=== PATIENT | female | born 1975 | race Caucasian/White ===

== ENCOUNTER → 2016-07-28 | Outpatient (CLI) | payer BC ==
[~2016-07-28] MED LIST: CLONAZEPAM PO; CYMBALTA 20MG20 MG PO; CYMBALTA 30MG30 MG PO; ESKALITH C450 MG/TAB; ESKALITH C450 MG/TAB PO; EXCEDRIN 250 MG1 TAB PO; EXCEDRIN MIGRAI1 TAB PO; GEODON 20 MG20 MG PO; GEODON 40MG40 MG PO; GEODON60 MG PO; INHALER; KLONOPIN 0.5MG0.5 MG PO; KLONOPIN 1MG1 MG PO; LITHIUM 30300 MG/CAP PO; LITHIUM CA150 MG/CAP PO; MVI PO; PREMARIN 0.60.625 MG PO; PREMARIN0.625 MG PO; ULTRAM 50MG TAB50 MG PO; UNABLE; VITAMIN C250250 MG PO; VITAMIN E1000 IU PO; ZOFRAN ODT4 MG PO; [UNRECOGNIZED DRUG - REMARK]
== END ==
LOC: BHSO 09:45
DX: F31.81 Bipolar II disorder (principal)

== ENCOUNTER → 2016-09-23 | Outpatient (CLI) | payer BC | LOC: BHSO 15:11 | DX: F31.74 Bipolar disorder, in full remission, most recent episode manic (principal) ==

== ENCOUNTER 2017-11-06 06:22 | Emergency (ER) | payer BC ==
[~2017-11-06] VITALS: Ht 157.5 cm; Wt 72.7 kg
[2017-11-06 06:43] VITALS: TEMP 98.1
[2017-11-06 07:06] LABS: COLLECTION METHOD CLEAN CATCH
[2017-11-06] MEDS ORDERED: SAPHRIS10 MG SL (07:16)
[2017-11-06 07:17] LABS: PH 6 (5-8); SQUAMOUS EPITHELIAL None Seen /hpf; URINE APPEARANCE Clear; URINE BACTERIA None Seen /hpf; URINE BILIRUBIN Negative (NEGATIVE); URINE BLOOD 2+ (NEGATIVE); URINE COLOR Yellow; URINE GLUCOSE Negative (NEGATIVE); URINE KETONE Negative (NEGATIVE); URINE LEUKOCYTE ESTERASE Negative (NEGATIVE); URINE NITRATE Negative (NEGATIVE); URINE PROTEIN(semi-quant) Negative (NEGATIVE); URINE UROBILINOGEN Negative (NEGATIVE)
[2017-11-06] MEDS ORDERED: COGENTIN .0.5 MG/TAB PO (07:17)
[2017-11-06] MEDS ORDERED: SAPHRIS5 MG SL (07:17)
[2017-11-06 07:19] LABS: BASO # 0.1 (0.0-0.2); BASO % 1.1 % (0.0-2.0); EOS # 0.7 (0.0-0.7); EOS % 5.6 % (0-4.0); GRAN # 6.5 (1.4-6.5); GRAN % 52.9 % (42.2-75.2); HEMATOCRIT 44.4 % (37.0-47.0); HEMOGLOBIN 14.8 g/dl (12.5-16.0); LYMPH # 3.8 (1.2-3.4); LYMPH % 30.7 % (20.0-51.0); MEAN CELL VOLUME 90 fl (80.0-100.0); MEAN CORPUSCULAR HEMOGLOBIN 30 pg (27.0-31.0); MEAN CORPUSCULAR HGB CONC 33 g/dl (33.0-37.0); MONO # 1.2 (0.1-0.6); MONO % 9.3 % (1.7-9.3); PLATELET COUNT 363 K/mm3 (130-400); RED BLOOD COUNT 4.91 M/mm3 (4.10-5.30); REDCELL DISTRIBUTION WIDTH-CV 14.8 % (11.5-14.5)
[2017-11-06 07:26] LABS: TRICYCLIC ANTIDEPRESS URINE NEGATIVE
[2017-11-06 07:33] LABS: ALANINE AMINOTRANSFERASE 235 U/L (9-52); ALKALINE PHOSPHATASE 121 U/L (50-136); ANION GAP 12 mmol/L (7-16); AST,SGOT 117 U/L (15-37); BILIRUBIN,TOTAL 0.4 mg/dL (0.0-1.0); BLOOD UREA NITROGEN 12 mg/dL (7-17); CALCIUM 9.4 mg/dL (8.4-10.2); CARBON DIOXIDE 25 mmol/L (22-30); CHLORIDE 106 mmol/L (98-107); GLUCOSE 91 mg/dL (74-106); POTASSIUM 3.8 mmol/L (3.4-5.0); SODIUM 144 mmol/L (137-145); TOTAL PROTEIN 7.9 gm/dL (6.4-8.2)
[2017-11-06 07:35] LABS: ACETAMINOPHEN < 10 ug/mL (10-30); ALCOHOL(ethanol),MEDICAL < 10 mg/dL; SALICYLATE < 1.0 mg/dL
[2017-11-06 07:37] LABS: LITHIUM < 0.2 mmol/L (0.6-1.2)
[2017-11-06 12:30] VITALS: BP 128/89; PULSE 109
== END 2017-11-06 16:55 ==
LOC: COL.ER 06:22
PROVIDERS: Emergency Medicine
DX: F31.9 Bipolar disorder, unspecified (principal); F23 Brief psychotic disorder; R45.851 Suicidal ideations; F41.9 Anxiety disorder, unspecified; E03.9 Hypothyroidism, unspecified; F60.3 Borderline personality disorder; F17.210 Nicotine dependence, cigarettes, uncomplicated
CPT/HCPCS: A4216; J3486

== ENCOUNTER 2017-12-21 16:12 | Emergency (ER) | payer MEDICARE ==
[~2017-12-21] VITALS: Ht 177.8 cm; Wt 72.7 kg
[~2017-12-21 16:12] MED LIST changes: +COGENTIN .0.5 MG/TAB PO; +SAPHRIS10 MG SL; +SAPHRIS5 MG SL
[2017-12-21 16:22] VITALS: TEMP 97.6
[2017-12-21 17:06] LABS: BASO # 0.1 (0.0-0.2); BASO % 0.6 % (0.0-2.0); EOS # 0.6 (0.0-0.7); EOS % 3.6 % (0-4.0); GRAN # 10.9 (1.4-6.5); GRAN % 64.6 % (42.2-75.2); HEMATOCRIT 39.8 % (37.0-47.0); HEMOGLOBIN 13.2 g/dl (12.5-16.0); LYMPH # 3.7 (1.2-3.4); LYMPH % 22.1 % (20.0-51.0); MEAN CELL VOLUME 91 fl (80.0-100.0); MEAN CORPUSCULAR HEMOGLOBIN 30 pg (27.0-31.0); MEAN CORPUSCULAR HGB CONC 33 g/dl (33.0-37.0); MONO # 1.5 (0.1-0.6); MONO % 8.8 % (1.7-9.3); PLATELET COUNT 385 K/mm3 (130-400); RED BLOOD COUNT 4.36 M/mm3 (4.10-5.30); REDCELL DISTRIBUTION WIDTH-CV 14.6 % (11.5-14.5)
[2017-12-21 17:16] LABS: ALANINE AMINOTRANSFERASE 212 U/L (9-52); ALBUMIN 3.7 gm/dL (3.5-5.0); ALKALINE PHOSPHATASE 111 U/L (50-136); ANION GAP 16 mmol/L (7-16); AST,SGOT 110 U/L (15-37); BILIRUBIN,TOTAL 1.1 mg/dL (0.0-1.0); BLOOD UREA NITROGEN 11 mg/dL (7-17); CALCIUM 9.5 mg/dL (8.4-10.2); CARBON DIOXIDE 20 mmol/L (22-30); CHLORIDE 110 mmol/L (98-107); CREATININE, serum 0.88 mg/dL (0.52-1.25); GLUCOSE 98 mg/dL (74-106); POTASSIUM 3.2 mmol/L (3.4-5.0); SALICYLATE 3.9 mg/dL; SODIUM 145 mmol/L (137-145); TOTAL PROTEIN 7.3 gm/dL (6.4-8.2)
[2017-12-21 17:17] LABS: ACETAMINOPHEN < 10 ug/mL (10-30); ALCOHOL(ethanol),MEDICAL < 10 mg/dL
[2017-12-21 17:33] LABS: COLLECTION METHOD CATHETER
[2017-12-21 17:45] LABS: HYALINE CAST >12 /lpf; MUCOUS Present /lpf; PH 5 (5-8); SQUAMOUS EPITHELIAL 0-2 /hpf; URINE APPEARANCE Hazy; URINE BACTERIA Rare /hpf; URINE BILIRUBIN Positive (NEGATIVE); URINE BLOOD 1+ (NEGATIVE); URINE COLOR Amber; URINE GLUCOSE Negative (NEGATIVE); URINE KETONE 1+ (NEGATIVE); URINE LEUKOCYTE ESTERASE 2+ (NEGATIVE); URINE NITRATE Negative (NEGATIVE); URINE PROTEIN(semi-quant) 2+ (NEGATIVE); URINE UROBILINOGEN >=4.0 mg/dL (NEGATIVE)
[2017-12-21 17:47] LABS: TRICYCLIC ANTIDEPRESS URINE NEGATIVE
[2017-12-21 23:26] VITALS: BP 105/56
[2017-12-22] MEDS ORDERED: CEPHALEXIN500 M1 PO (05:27)
[2017-12-22 05:40] VITALS: PULSE 98
[2017-12-23] MEDS ORDERED: AMOXICILLIN 50500 MG PO (22:10)
== END 2017-12-22 05:40 | disposition home or self-care (01) ==
LOC: COL.ER 16:12
PROVIDERS: Emergency Medicine
DX: F15.10 Other stimulant abuse, uncomplicated (principal); F31.9 Bipolar disorder, unspecified
CPT/HCPCS: J0696; J2060; J7030

== ENCOUNTER 2017-12-22 20:32 | Emergency (ER) | payer MEDICARE ==
[~2017-12-22 20:32] MED LIST changes: +CEPHALEXIN500 M1 PO
[2017-12-22 21:31] LABS: COLLECTION METHOD CLEAN CATCH
[2017-12-22 21:38] LABS: BASO # 0.1 (0.0-0.2); BASO % 0.8 % (0.0-2.0); EOS % 8.3 % (0-4.0); GRAN # 5.8 (1.4-6.5); HEMATOCRIT 41.6 % (37.0-47.0); HEMOGLOBIN 13.9 g/dl (12.5-16.0); LYMPH # 3.9 (1.2-3.4); LYMPH % 33.1 % (20.0-51.0); MEAN CELL VOLUME 92 fl (80.0-100.0); MEAN CORPUSCULAR HEMOGLOBIN 31 pg (27.0-31.0); MEAN CORPUSCULAR HGB CONC 33 g/dl (33.0-37.0); MEAN PLATELET VOLUME 9.5 fl (7.4-10.4); MONO % 8.4 % (1.7-9.3); PLATELET COUNT 404 K/mm3 (130-400); RED BLOOD COUNT 4.53 M/mm3 (4.10-5.30); REDCELL DISTRIBUTION WIDTH-CV 14.6 % (11.5-14.5)
[2017-12-22 21:41] LABS: MUCOUS Present /lpf; PH 6 (5-8); SQUAMOUS EPITHELIAL 0-2 /hpf; URINE APPEARANCE Clear; URINE BACTERIA None Seen /hpf; URINE BILIRUBIN Negative (NEGATIVE); URINE BLOOD 2+ (NEGATIVE); URINE COLOR Yellow; URINE GLUCOSE Negative (NEGATIVE); URINE KETONE Negative (NEGATIVE); URINE LEUKOCYTE ESTERASE Negative (NEGATIVE); URINE NITRATE Negative (NEGATIVE); URINE PROTEIN(semi-quant) Negative (NEGATIVE)
[2017-12-22 21:44] LABS: ALBUMIN 3.9 gm/dL (3.5-5.0); BILIRUBIN,TOTAL 0.6 mg/dL (0.0-1.0); CALCIUM 9.6 mg/dL (8.4-10.2); CREATININE, serum 0.75 mg/dL (0.52-1.25); POTASSIUM 3.8 mmol/L (3.4-5.0); SALICYLATE 7.2 mg/dL; TOTAL PROTEIN 7.7 gm/dL (6.4-8.2)
[2017-12-22 22:03] LABS: TRICYCLIC ANTIDEPRESS URINE NEGATIVE
[2017-12-22 22:26] LABS: LITHIUM 0.4 mmol/L (0.6-1.2)
[2017-12-22 23:57] VITALS: BP 125/78; PULSE 99; TEMP 97
[2017-12-23] MEDS ORDERED: AMOXICILLIN 50500 MG PO (22:10)
== END 2017-12-22 23:58 | disposition home or self-care (01) ==
LOC: COL.ER 20:32
PROVIDERS: Emergency Medicine
DX: F31.9 Bipolar disorder, unspecified (principal); F15.10 Other stimulant abuse, uncomplicated; F29 Unspecified psychosis not due to a substance or known physiological condition; N39.0 Urinary tract infection, site not specified; F41.9 Anxiety disorder, unspecified; F12.90 Cannabis use, unspecified, uncomplicated; F17.210 Nicotine dependence, cigarettes, uncomplicated

== ENCOUNTER 2018-01-04 02:03 | Emergency (ER) | payer MEDICARE ==
[~2018-01-04] VITALS: Ht 160 cm; Wt 63.6 kg
[~2018-01-04 02:03] MED LIST changes: +AMOXICILLIN 50500 MG PO
[2018-01-04 02:04] VITALS: BP 124/73; TEMP 97.6
[2018-01-04 02:51] LABS: BASO # 0.1 (0.0-0.2); BASO % 1.4 % (0.0-2.0); EOS # 0.4 (0.0-0.7); EOS % 4.3 % (0-4.0); GRAN # 5.1 (1.4-6.5); GRAN % 55.6 % (42.2-75.2); HEMATOCRIT 39.6 % (37.0-47.0); HEMOGLOBIN 12.8 g/dl (12.5-16.0); LYMPH # 2.8 (1.2-3.4); LYMPH % 30.5 % (20.0-51.0); MEAN CELL VOLUME 92 fl (80.0-100.0); MEAN CORPUSCULAR HEMOGLOBIN 30 pg (27.0-31.0); MEAN CORPUSCULAR HGB CONC 32 g/dl (33.0-37.0); MEAN PLATELET VOLUME 10.1 fl (7.4-10.4); MONO # 0.7 (0.1-0.6); MONO % 7.7 % (1.7-9.3); PLATELET COUNT 356 K/mm3 (130-400); RED BLOOD COUNT 4.31 M/mm3 (4.10-5.30); REDCELL DISTRIBUTION WIDTH-CV 15.1 % (11.5-14.5)
[2018-01-04 02:52] LABS: COLLECTION METHOD CLEAN CATCH
[2018-01-04 03:06] LABS: MUCOUS Present /lpf; PH 5 (5-8); SQUAMOUS EPITHELIAL 0-2 /hpf; URINE APPEARANCE Clear; URINE BACTERIA None Seen /hpf; URINE BILIRUBIN Negative (NEGATIVE); URINE BLOOD 2+ (NEGATIVE); URINE COLOR Yellow; URINE GLUCOSE Negative (NEGATIVE); URINE KETONE Negative (NEGATIVE); URINE LEUKOCYTE ESTERASE Trace (NEGATIVE); URINE NITRATE Negative (NEGATIVE); URINE PROTEIN(semi-quant) Negative (NEGATIVE); URINE UROBILINOGEN Negative (NEGATIVE)
[2018-01-04 03:14] LABS: TRICYCLIC ANTIDEPRESS URINE NEGATIVE
[2018-01-04 05:49] VITALS: PULSE 97
== END 2018-01-04 08:39 | disposition home or self-care (01) ==
LOC: COL.ER 02:03
PROVIDERS: Family Medicine
DX: S00.83XA Contusion of other part of head, initial encounter (principal); F15.921 Other stimulant use, unspecified with intoxication delirium; F10.129 Alcohol abuse with intoxication, unspecified; Y90.5 Blood alcohol level of 100-119 mg/100 ml; F31.9 Bipolar disorder, unspecified; Y04.8XXA Assault by other bodily force, initial encounter
CPT/HCPCS: J7030

== ENCOUNTER → 2018-01-11 | Outpatient (CLI) | payer MEDICARE | LOC: BHSO 11:11 | DX: F31.81 Bipolar II disorder (principal) | CPT/HCPCS: G0463 ==

== ENCOUNTER 2018-02-02 18:56 | Emergency (ER) | payer MEDICARE ==
[~2018-02-02] VITALS: Ht 160 cm; Wt 65.9 kg
[2018-02-02 19:01] VITALS: BP 104/94; PULSE 101; TEMP 97
== END 2018-02-02 19:16 | disposition left against medical advice (07) ==
LOC: COL.ER 18:56
DX: S10.91XA Abrasion of unspecified part of neck, initial encounter (principal); F10.129 Alcohol abuse with intoxication, unspecified; Y04.8XXA Assault by other bodily force, initial encounter

== ENCOUNTER 2018-05-16 15:44 | Emergency (ER) | payer MEDICARE, BC ==
[~2018-05-16] VITALS: Ht 160 cm; Wt 68.2 kg
[2018-05-16 15:49] VITALS: TEMP 98.9
[2018-05-16 16:46] LABS: BASO # 0.1 (0.0-0.2); BASO % 0.9 % (0.0-2.0); EOS # 0.8 (0.0-0.7); EOS % 6.3 % (0-4.0); GRAN # 7.8 (1.4-6.5); GRAN % 58.5 % (42.2-75.2); HEMATOCRIT 39.3 % (37.0-47.0); HEMOGLOBIN 12.6 g/dl (12.5-16.0); LYMPH # 3.3 (1.2-3.4); LYMPH % 24.5 % (20.0-51.0); MEAN CELL VOLUME 92 fl (80.0-100.0); MEAN CORPUSCULAR HEMOGLOBIN 30 pg (27.0-31.0); MEAN CORPUSCULAR HGB CONC 32 g/dl (33.0-37.0); MONO # 1.2 (0.1-0.6); MONO % 9.4 % (1.7-9.3); PLATELET COUNT 406 K/mm3 (130-400); RED BLOOD COUNT 4.27 M/mm3 (4.10-5.30); REDCELL DISTRIBUTION WIDTH-CV 15.7 % (11.5-14.5)
[2018-05-16 17:11] LABS: ALANINE AMINOTRANSFERASE 88 U/L (9-52); ALKALINE PHOSPHATASE 87 U/L (50-136); ANION GAP 4 mmol/L (7-16); AST,SGOT 52 U/L (15-37); BILIRUBIN,TOTAL 0.3 mg/dL (0.0-1.0); BLOOD UREA NITROGEN 12 mg/dL (7-17); CALCIUM 9.7 mg/dL (8.4-10.2); CARBON DIOXIDE 30 mmol/L (22-30); CHLORIDE 106 mmol/L (98-107); CREATININE, serum 0.87 mg/dL (0.52-1.25); GLUCOSE 93 mg/dL (74-106); POTASSIUM 4.1 mmol/L (3.4-5.0); SALICYLATE 3.5 mg/dL; SODIUM 140 mmol/L (137-145); TOTAL PROTEIN 7.4 gm/dL (6.4-8.2)
[2018-05-16 17:11] LABS: TRICYCLIC ANTIDEPRESS URINE NEGATIVE
[2018-05-16 17:12] LABS: LITHIUM 0.8 mmol/L (0.6-1.2)
[2018-05-16 17:13] LABS: ACETAMINOPHEN < 10 ug/mL (10-30); ALCOHOL(ethanol),MEDICAL < 10 mg/dL
[2018-05-17 14:30] VITALS: BP 140/80; PULSE 96
== END 2018-05-17 15:09 ==
LOC: COL.ER 15:44
PROVIDERS: Emergency Medicine
DX: J40 Bronchitis, not specified as acute or chronic (principal); F29 Unspecified psychosis not due to a substance or known physiological condition; F31.9 Bipolar disorder, unspecified; F41.9 Anxiety disorder, unspecified; F60.3 Borderline personality disorder; F17.210 Nicotine dependence, cigarettes, uncomplicated; Z88.8 Allergy status to other drugs, medicaments and biological substances
CPT/HCPCS: J7512

== ENCOUNTER → 2019-09-13 | Outpatient (CLI) | payer MEDICARE, BC | LOC: BHSO 11:21 | DX: F31.77 Bipolar disorder, in partial remission, most recent episode mixed (principal) | CPT/HCPCS: G0463 ==

== ENCOUNTER → 2020-07-30 | Outpatient (CLI) | payer MEDICARE, BC | LOC: COL.LAB 08:00 → SDCO 08-02 07:30 → EDSTATUS 08-02 07:30 | DX: Z01.812 Encounter for preprocedural laboratory examination (principal); K42.9 Umbilical hernia without obstruction or gangrene; Z20.822 Contact with and (suspected) exposure to COVID-19 ==

== ENCOUNTER 2023-08-14 09:10 | Day surgery (SDC) | payer MEDICARE, BC ==
[~2023-08-14] VITALS: Ht 157.5 cm; Wt 94.8 kg
[~2023-08-14 09:10] MED LIST changes: +Famotidine 20 MG TAB PO SCH; +LR 1,000 ML IV SCH
[2023-08-14] MEDS ORDERED: ADIPEX-P37.5 M2 PO (09:14)
[2023-08-14] MEDS ORDERED: TRELEGY ELLIPT1 EAC1 IH (09:14)
[2023-08-14] MEDS ORDERED: VRAYLAR1.5 MG PO (09:15)
[2023-08-14] MEDS ORDERED: KLONOPIN 0.5MG0.5 MG PO (09:15)
[2023-08-14 09:16] VITALS: BP 112/76; PULSE 106; TEMP 97.3
[2023-08-14] MEDS ORDERED: INDERAL 20MG20 MG PO (09:16)
--- NOTE | 2023-08-14 09:40 | NUR ---
The patient ambulated back to [facility] independently using a steady gait and appeared to tolerate the activity well. Vital signs obtained. Consent signed. Home medications reconcilled. Assessment completed. 18G IV started in right hand with one stick, LR infusing without difficulty. Warm blankets provided. Parents brought back to be at her bedside. Call light is within reach. The patient denies any further needs at this time.
[2023-08-14] MEDS ORDERED: Rocuronium 50 MG/5 ML Multi-Dose VIAL ONE (09:53)
[2023-08-14] MEDS ORDERED: fentaNYL 50 MCG/ML 5 ML VIAL ONE ×2 (09:53→09:54)
[2023-08-14] MEDS ORDERED: Ondansetron 4 MG/2 ML VIAL ONE (09:54)
[2023-08-14] MEDS ORDERED: dexAMETHasone 10 MG/ML VIAL ONE (09:54)
[2023-08-14] MEDS ORDERED: NS 10 ML IV ONE (09:54)
[2023-08-14] MEDS ORDERED: hydrALAZINE 20 MG/ML 1 ML VIAL IV PRN (10:15)
[2023-08-14] MEDS ORDERED: HYDROmorphone 2 MG/1 ML VIAL IV PRN (10:15)
[2023-08-14] MEDS ORDERED: Promethazine 25 MG/ML 1 ML VIAL IV PRN (10:15)
[2023-08-14] MEDS ORDERED: Ondansetron 4 MG/2 ML VIAL IV PRN ×2 (10:15→12:30)
[2023-08-14] MEDS ORDERED: fentaNYL 50 MCG/ML 2 ML VIAL IV PRN ×2 (10:15)
[2023-08-14] MEDS ORDERED: Ibuprofen 600 MG TAB PO PRN (12:30)
[2023-08-14] MEDS ORDERED: Acetaminophen 325 MG TAB PO PRN (12:30)
[2023-08-14] MEDS ORDERED: NORCO 325 MG-51 TAB PO (12:31)
[2023-08-14 13:10] VITALS: BP 128/75; PULSE 85; TEMP 97
--- NOTE | 2023-08-14 13:10 | NUR ---
The patient arrived back to [facility] from the recovery room at this time. The patient appears alert and oriented and reports minimal pain in her abdomen at this time. The patient has three incisions to her abdomen that covered with surgical glue and without redeness or edema. The patient has some ice water from the recovery room and appears to be tolerating it well. Post operative vital signs were started at this time. Parents are at her bedside. Call light is within reach. The patient denies any further needs at this time.
[2023-08-14 13:25] VITALS: BP 136/82; PULSE 80
--- NOTE | 2023-08-14 13:25 | NUR ---
The patient agrees to try some apple juice and a muffin at this time. Vital signs appear stable. Call light remains within reach.
[2023-08-14 13:40] VITALS: BP 139/87; PULSE 90
--- NOTE | 2023-08-14 13:40 | NUR ---
The patient has finished her food and drink and appeared to tolerate both well. She denies wanting anything further at this time.
[2023-08-14 13:55] VITALS: BP 131/86; PULSE 85
--- NOTE | 2023-08-14 13:55 | NUR ---
The patient's IV to her right hand was removed and a pressure dressing was applied to the site. Discharge instructions were reviewed with the patient and her parents. They all verbalized understanding and have no questions for the nurse at this time. The patient was assisted to the bathroom with stand by assist and appeared to tolerate the activity well. The nurse instructed the patient that if she felt steady on her feet she could ambulated back to her room after finishing and get dressed for discharge.
--- NOTE | 2023-08-14 14:10 | NUR ---
The patient was escorted out via wheelchair to a private vehicle by CINTHYA Langford. The patient's belongings and discharge paperwork were sent with her. The patient's parents are present to drive her home.
== END 2023-08-14 14:10 | disposition home or self-care (01) ==
LOC: SDCO 09:10
DX: K43.9 Ventral hernia without obstruction or gangrene (principal); K42.9 Umbilical hernia without obstruction or gangrene; E66.9 Obesity, unspecified; F17.210 Nicotine dependence, cigarettes, uncomplicated; Z68.38 Body mass index [BMI] 38.0-38.9, adult
CPT/HCPCS: C1781; J0690; J1100; J2405; J2704; J3010; J7120